=== PATIENT | male | born 1980 | race African-American/Black ===

== ENCOUNTER 2016-09-08 04:16 | Emergency (ER) | payer SELFPAY ==
[~2016-09-08] VITALS: Ht 167.6 cm; Wt 63.0 kg
[2016-09-08 04:20] VITALS: BP 129/82
== END 2016-09-08 04:39 | disposition left against medical advice (07) ==
LOC: ER 04:16
DX: Z53.21 Procedure and treatment not carried out due to patient leaving prior to being seen by health care provider (principal)